=== PATIENT | male | born 1945 | race Caucasian/White ===

== ENCOUNTER 2018-10-04 02:23 | Inpatient (IN) | payer MEDICARE ==
[~2018-10-04] VITALS: Ht 167.6 cm; Wt 81.6 kg
[2018-10-04] MEDS ORDERED: OMNIPAQUE 350 MG/ML, 100ML BOTTLE ONE (02:49)
[2018-10-04 03:05] LABS: BASOPHILS # (AUTO) 0.02 x10^3/uL (0-0.1); BASOPHILS % (AUTO) 0 % (0-1); EOSINOPHILS # (AUTO) 0.12 x10^3/uL (0-0.4); EOSINOPHILS % (AUTO) 1 % (1-7); LYMPHOCYTES # (AUTO) 1.03 x10^3/uL (1-3.4); LYMPHOCYTES % (AUTO) 9 % (22-44); MD NO; MEAN CORPUSCULAR HGB CONC 33.6 g/dL (33.2-36.2); MEAN CORPUSCULAR VOLUME 92.3 fL (81-97); MEAN PLATELET VOLUME 9.4 fL (7.4-10.4); MONOCYTES # (AUTO) 0.62 x10^3/uL (0.2-0.8); MONOCYTES % (AUTO) 6 % (2-9); NEUTROPHILS # (AUTO) 9.29 x10^3/uL (1.8-6.8); NEUTROPHILS % (AUTO) 84 % (42-75); PLATELET COUNT 205 x10^3/uL (130-400); RED BLOOD COUNT 4.05 x10^6/uL (4.38-5.82); RED CELL DISTRIBUTION WIDTH 13.6 % (9.4-14.8)
[2018-10-04 03:11] LABS: INTERNATIONAL NORMALIZED RATIO 0.98 (0.93-1.1); PROTHROMBIN TIME 10.2 Seconds (9.6-11.5)
[2018-10-04 03:13] LABS: ALBUMIN 3.5 g/dL (3.4-5.0); ANION GAP 7 mmol/L (5-15); CALCIUM 8.5 mg/dL (8.5-10.1); CHLORIDE 109 mmol/L (98-107); CREATININE 2.46 mg/dL (0.7-1.3)
[2018-10-04 03:17] LABS: TROPONIN I 0.027 ng/mL (0.000-0.045)
[2018-10-04] MEDS ORDERED: SODIUM CHLORIDE 0.9% 1,000 ML IV SCH (04:28)
[2018-10-04] MEDS ORDERED: ONDANSETRON 2MG/ML, 2ML IVPush PRN (04:30)
[2018-10-04] MEDS ORDERED: ACETAMINOPHEN 325 MG TABLET PO PRN (04:30)
[2018-10-04] MEDS ORDERED: ONDANSETRON 4 MG TABLET PO PRN (04:30)
[2018-10-04 05:44] VITALS: BP 183/83
[2018-10-04] MEDS ORDERED: PHARMACY MAY ADJ FOR RENAL FX MC PRN (07:00)
[2018-10-04 07:45] VITALS: BP 198/95
[2018-10-04 08:00] LABS: HEMOGLOBIN A1C 7.3 % (4.2-6.3)
[2018-10-04] MEDS: HEPARIN 5,000 UNITS/ML, 1ML SQ SCH ×2 (08:59→22:22)
[2018-10-04] MEDS ORDERED: CARVEDILOL 6.25 MG TABLET PO SCH (09:00)
[2018-10-04] MEDS: SODIUM CHLORIDE 0.45% 1,000 ML IV SCH ×2 (09:00→22:22)
[2018-10-04] MEDS: AMLODIPINE 5 MG TABLET PO SCH (09:00)
[2018-10-04] MEDS: ASPIRIN 81 MG TABLET CHEW PO/NG SCH (09:00)
[2018-10-04 13:18] LABS: MICROSCOPIC AUTO
[2018-10-04 13:21] LABS: CULTURE INDICATED? NO
[2018-10-04 13:29] LABS: CREATININE,URINE RANDOM 79.7 mg/dL
[2018-10-04 14:00] VITALS: BP 168/78
[2018-10-04 20:03] VITALS: BP 151/74
[2018-10-04] MEDS ORDERED: CBD OIL PO SCH (21:00)
[2018-10-05 00:38] VITALS: BP 180/82
[2018-10-05 03:45] VITALS: BP 183/81
[2018-10-05 05:25] LABS: ALANINE AMINOTRANSFERASE 16 U/L (12-78); ALBUMIN 3.1 g/dL (3.4-5.0); ANION GAP 9 mmol/L (5-15); CALCIUM 8.1 mg/dL (8.5-10.1); CHLORIDE 111 mmol/L (98-107)
[2018-10-05 05:29] LABS: ALKALINE PHOSPHATASE 72 U/L (45-117); BILIRUBIN,TOTAL 0.5 mg/dL (0.2-1.0); CHOL/HDL RATIO 4.3; CHOLESTEROL, TOTAL 137 mg/dL (140-239); CREATININE 2.38 mg/dL (0.7-1.3); HDL CHOL % 23 % (26-37); HDL CHOLESTEROL (DIRECT) 32 mg/dL (40-60); LDL CHOLESTEROL,CALCULATED 75 mg/dL (54-169); LDL/HDL RATIO 2.3 (0.5-3.0); TOTAL PROTEIN 6.9 g/dL (6.4-8.2); TRIGLYCERIDES 150 mg/dL (50-200); VLDL CHOLESTEROL 30 mg/dL (0-25)
[2018-10-05 05:32] LABS: BASOPHILS # (AUTO) 0.05 x10^3/uL (0-0.1); BASOPHILS % (AUTO) 1 % (0-1); EOSINOPHILS # (AUTO) 0.12 x10^3/uL (0-0.4); EOSINOPHILS % (AUTO) 1 % (1-7); LYMPHOCYTES # (AUTO) 1.09 x10^3/uL (1-3.4); LYMPHOCYTES % (AUTO) 13 % (22-44); MD NO; MEAN CORPUSCULAR HEMOGLOBIN 30.7 pg (27.5-34.5); MEAN CORPUSCULAR HGB CONC 33.6 g/dL (33.2-36.2); MEAN CORPUSCULAR VOLUME 91.3 fL (81-97); MEAN PLATELET VOLUME 9.8 fL (7.4-10.4); MONOCYTES # (AUTO) 0.63 x10^3/uL (0.2-0.8); MONOCYTES % (AUTO) 7 % (2-9); NEUTROPHILS # (AUTO) 6.78 x10^3/uL (1.8-6.8); NEUTROPHILS % (AUTO) 78 % (42-75); PLATELET COUNT 182 x10^3/uL (130-400); RED CELL DISTRIBUTION WIDTH 13.6 % (9.4-14.8)
[2018-10-05] MEDS ORDERED: cloniDINE 0.1MG PATCH TD SCH (07:30)
[2018-10-05 08:00] VITALS: BP 184/94
[2018-10-05] MEDS ORDERED: [UNRECOGNIZED DRUG - OTHER] PO SCH (08:00)
[2018-10-05] MEDS: HEPARIN 5,000 UNITS/ML, 1ML SQ SCH (09:16)
[2018-10-05] MEDS: AMLODIPINE 5 MG TABLET PO SCH (09:17)
[2018-10-05] MEDS: ASPIRIN 81 MG TABLET CHEW PO/NG SCH (09:17)
[2018-10-05] MEDS: TAMSULOSIN 0.4 MG CAP.ER.24H PO SCH (09:17)
[2018-10-05] MEDS: SODIUM CHLORIDE 0.45% 1,000 ML IV SCH (09:18)
[2018-10-05 13:05] VITALS: BP 159/77
[2018-10-05] MEDS: CARVEDILOL 25 MG TABLET PO SCH ×2 (13:27→16:51)
[2018-10-05] MEDS ORDERED: ONDANSETRON ODT 4 MG ONE (15:00)
[2018-10-05] MEDS: ONDANSETRON ODT 4 MG PO PRN ×2 (15:02→20:50)
[2018-10-05 18:47] VITALS: BP 149/75
[2018-10-05] MEDS ORDERED: HEPARIN wt. based STROKE protocol MC PRN (19:00)
[2018-10-05 19:05] LABS: INTERNATIONAL NORMALIZED RATIO 0.99 (0.93-1.1); PROTHROMBIN TIME 10.3 Seconds (9.6-11.5)
[2018-10-05] MEDS ORDERED: WARFARIN 5 MG TABLET PO-COUM ONE (19:30)
[2018-10-05] MEDS: HEPARIN 25,000 UNITS/500ML PMX 500 ML IV PRN (20:17)
[2018-10-06] MEDS: SODIUM CHLORIDE 0.45% 1,000 ML IV SCH ×2 (02:09→12:22)
[2018-10-06 02:27] LABS: BASOPHILS # (AUTO) 0.04 x10^3/uL (0-0.1); BASOPHILS % (AUTO) 0 % (0-1); EOSINOPHILS # (AUTO) 0.05 x10^3/uL (0-0.4); EOSINOPHILS % (AUTO) 0 % (1-7); LYMPHOCYTES % (AUTO) 8 % (22-44); MD NO; MEAN CORPUSCULAR HEMOGLOBIN 31.2 pg (27.5-34.5); MEAN CORPUSCULAR HGB CONC 33.9 g/dL (33.2-36.2); MEAN CORPUSCULAR VOLUME 92.1 fL (81-97); MEAN PLATELET VOLUME 9.3 fL (7.4-10.4); MONOCYTES % (AUTO) 6 % (2-9); NEUTROPHILS # (AUTO) 9.21 x10^3/uL (1.8-6.8); NEUTROPHILS % (AUTO) 85 % (42-75); PLATELET COUNT 193 x10^3/uL (130-400); RED BLOOD COUNT 3.93 x10^6/uL (4.38-5.82); RED CELL DISTRIBUTION WIDTH 13.1 % (9.4-14.8)
[2018-10-06 02:38] LABS: ALBUMIN 3.4 g/dL (3.4-5.0); ANION GAP 13 mmol/L (5-15); CALCIUM 8.2 mg/dL (8.5-10.1); CHLORIDE 109 mmol/L (98-107); CREATININE 2.86 mg/dL (0.7-1.3)
[2018-10-06 02:40] LABS: INTERNATIONAL NORMALIZED RATIO 0.99 (0.93-1.1); PROTHROMBIN TIME 10.3 Seconds (9.6-11.5)
[2018-10-06 03:22] VITALS: BP 165/89
[2018-10-06] MEDS: ONDANSETRON ODT 4 MG PO PRN (05:02)
[2018-10-06] MEDS: CARVEDILOL 25 MG TABLET PO SCH ×2 (06:00→17:48)
[2018-10-06 07:02] VITALS: BP 174/78
[2018-10-06] MEDS: AMLODIPINE 5 MG TABLET PO SCH (09:00)
[2018-10-06] MEDS: TAMSULOSIN 0.4 MG CAP.ER.24H PO SCH (09:00)
[2018-10-06 12:44] VITALS: BP 183/71
[2018-10-06] MEDS: SODIUM BICARBONATE 650 MG TABLET PO SCH (14:39)
[2018-10-06] MEDS: LACTATED RINGERS 1,000 ML IV SCH (14:40)
[2018-10-06] MEDS ORDERED: WARFARIN 5 MG TABLET PO-COUM ONE (18:00)
[2018-10-06 19:51] VITALS: BP 152/77
[2018-10-07] MEDS: HEPARIN 25,000 UNITS/500ML PMX 500 ML IV PRN ×2 (00:27→22:43)
[2018-10-07 00:42] VITALS: BP 135/50
[2018-10-07] MEDS: LACTATED RINGERS 1,000 ML IV SCH ×3 (00:42→22:37)
[2018-10-07] MEDS: SODIUM BICARBONATE 650 MG TABLET PO SCH ×2 (01:40→08:10)
[2018-10-07 04:45] LABS: BASOPHILS # (AUTO) 0.01 x10^3/uL (0-0.1); BASOPHILS % (AUTO) 0 % (0-1); EOSINOPHILS % (AUTO) 2 % (1-7); LYMPHOCYTES # (AUTO) 0.88 x10^3/uL (1-3.4); LYMPHOCYTES % (AUTO) 10 % (22-44); MD NO; MEAN CORPUSCULAR HEMOGLOBIN 31.1 pg (27.5-34.5); MEAN CORPUSCULAR HGB CONC 33.9 g/dL (33.2-36.2); MEAN CORPUSCULAR VOLUME 91.9 fL (81-97); MEAN PLATELET VOLUME 9.4 fL (7.4-10.4); MONOCYTES # (AUTO) 0.66 x10^3/uL (0.2-0.8); MONOCYTES % (AUTO) 7 % (2-9); NEUTROPHILS % (AUTO) 81 % (42-75); PLATELET COUNT 166 x10^3/uL (130-400); RED BLOOD COUNT 3.76 x10^6/uL (4.38-5.82); RED CELL DISTRIBUTION WIDTH 13.1 % (9.4-14.8)
[2018-10-07 04:49] LABS: INTERNATIONAL NORMALIZED RATIO 1.01 (0.93-1.1); PROTHROMBIN TIME 10.5 Seconds (9.6-11.5)
[2018-10-07 04:51] LABS: ALBUMIN 2.9 g/dL (3.4-5.0); ANION GAP 7 mmol/L (5-15); CALCIUM 8.4 mg/dL (8.5-10.1); CHLORIDE 109 mmol/L (98-107); CREATININE 2.74 mg/dL (0.7-1.3)
[2018-10-07] MEDS: CARVEDILOL 25 MG TABLET PO SCH (06:00)
[2018-10-07] MEDS: COREG MC SCH ×2 (06:30→07:30)
[2018-10-07 07:52] VITALS: BP 184/73
[2018-10-07] MEDS: AMLODIPINE 5 MG TABLET PO SCH (08:10)
[2018-10-07] MEDS: TAMSULOSIN 0.4 MG CAP.ER.24H PO SCH (08:10)
[2018-10-07] MEDS: METOPROLOL SUCCINATE 50 MG TAB.ER.24H PO SCH (08:11)
[2018-10-07] MEDS ORDERED: SODIUM CHLORIDE 0.45%, 1,000ML IVBOLUS SCH (09:00)
[2018-10-07] MEDS: SODIUM CHLORIDE 0.45% 1,000 ML IV SCH ×2 (09:00→19:00)
[2018-10-07 11:04] VITALS: BP 92/59
[2018-10-07 14:00] VITALS: BP 149/78
[2018-10-07] MEDS ORDERED: WARFARIN 7.5 MG TABLET PO-COUM ONE (18:00)
[2018-10-07 18:34] VITALS: BP 137/73
[2018-10-07 23:10] VITALS: BP 162/74
[2018-10-08 00:38] VITALS: BP 168/69
[2018-10-08 02:40] LABS: CREATININE,URINE RANDOM 40.5 mg/dL
[2018-10-08 05:41] LABS: BASOPHILS # (AUTO) 0.04 x10^3/uL (0-0.1); BASOPHILS % (AUTO) 0 % (0-1); EOSINOPHILS # (AUTO) 0.19 x10^3/uL (0-0.4); EOSINOPHILS % (AUTO) 2 % (1-7); LYMPHOCYTES # (AUTO) 0.88 x10^3/uL (1-3.4); LYMPHOCYTES % (AUTO) 10 % (22-44); MD NO; MEAN CORPUSCULAR HEMOGLOBIN 31.1 pg (27.5-34.5); MEAN CORPUSCULAR HGB CONC 33.7 g/dL (33.2-36.2); MEAN CORPUSCULAR VOLUME 92.3 fL (81-97); MEAN PLATELET VOLUME 9.6 fL (7.4-10.4); MONOCYTES # (AUTO) 0.71 x10^3/uL (0.2-0.8); MONOCYTES % (AUTO) 8 % (2-9); NEUTROPHILS # (AUTO) 7.33 x10^3/uL (1.8-6.8); NEUTROPHILS % (AUTO) 80 % (42-75); PLATELET COUNT 171 x10^3/uL (130-400); RED BLOOD COUNT 3.73 x10^6/uL (4.38-5.82); RED CELL DISTRIBUTION WIDTH 13.4 % (9.4-14.8)
[2018-10-08 05:49] LABS: INTERNATIONAL NORMALIZED RATIO 1.1 (0.93-1.1); PROTHROMBIN TIME 11.4 Seconds (9.6-11.5)
[2018-10-08 05:50] LABS: ALBUMIN 2.7 g/dL (3.4-5.0); ANION GAP 9 mmol/L (5-15); CALCIUM 7.9 mg/dL (8.5-10.1); CHLORIDE 109 mmol/L (98-107); CREATININE 2.52 mg/dL (0.7-1.3)
[2018-10-08] MEDS: LACTATED RINGERS 1,000 ML IV SCH ×2 (06:08→16:24)
[2018-10-08] MEDS: METOPROLOL SUCCINATE 50 MG TAB.ER.24H PO SCH (06:08)
[2018-10-08 07:01] VITALS: BP 162/65
[2018-10-08] MEDS: TAMSULOSIN 0.4 MG CAP.ER.24H PO SCH (09:14)
[2018-10-08] MEDS: AMLODIPINE 5 MG TABLET PO SCH ×2 (09:14→20:45)
[2018-10-08 13:36] VITALS: BP 156/69
[2018-10-08] MEDS ORDERED: WARFARIN 10 MG TABLET PO-COUM ONE (18:00)
[2018-10-08 19:22] VITALS: BP 140/70
[2018-10-08] MEDS: HEPARIN 25,000 UNITS/500ML PMX 500 ML IV PRN (20:16)
[2018-10-09] MEDS: LACTATED RINGERS 1,000 ML IV SCH ×3 (00:05→18:14)
[2018-10-09 01:59] VITALS: BP 136/71
[2018-10-09] MEDS: METOPROLOL SUCCINATE 50 MG TAB.ER.24H PO SCH (05:57)
[2018-10-09 06:22] LABS: INTERNATIONAL NORMALIZED RATIO 1.43 (0.93-1.1); PROTHROMBIN TIME 14.8 Seconds (9.6-11.5)
[2018-10-09 06:56] LABS: BASOPHILS # (AUTO) 0.01 x10^3/uL (0-0.1); BASOPHILS % (AUTO) 0 % (0-1); EOSINOPHILS # (AUTO) 0.17 x10^3/uL (0-0.4); EOSINOPHILS % (AUTO) 2 % (1-7); LYMPHOCYTES % (AUTO) 9 % (22-44); MD NO; MEAN CORPUSCULAR HEMOGLOBIN 31.3 pg (27.5-34.5); MEAN CORPUSCULAR HGB CONC 34.2 g/dL (33.2-36.2); MEAN CORPUSCULAR VOLUME 91.6 fL (81-97); MEAN PLATELET VOLUME 9.5 fL (7.4-10.4); MONOCYTES # (AUTO) 0.66 x10^3/uL (0.2-0.8); MONOCYTES % (AUTO) 7 % (2-9); NEUTROPHILS % (AUTO) 82 % (42-75); PLATELET COUNT 166 x10^3/uL (130-400); RED BLOOD COUNT 3.75 x10^6/uL (4.38-5.82); RED CELL DISTRIBUTION WIDTH 13.9 % (9.4-14.8)
[2018-10-09 07:10] LABS: ALBUMIN 2.8 g/dL (3.4-5.0); ANION GAP 9 mmol/L (5-15); CHLORIDE 108 mmol/L (98-107)
[2018-10-09 07:12] LABS: CREATININE 2.61 mg/dL (0.7-1.3)
[2018-10-09 07:48] VITALS: BP 164/78
[2018-10-09] MEDS: AMLODIPINE 5 MG TABLET PO SCH ×2 (08:20→20:55)
[2018-10-09] MEDS: TAMSULOSIN 0.4 MG CAP.ER.24H PO SCH (08:21)
[2018-10-09] MEDS ORDERED: HEPARIN 25,000 UNITS/500ML PMX 500 ML IV PRN ×2 (12:00→12:30)
[2018-10-09 12:16] VITALS: BP 142/74
[2018-10-09] MEDS ORDERED: WARFARIN 10 MG TABLET PO-COUM SCH (18:00)
[2018-10-09] MEDS: LIDODERM 5% PATCH TD SCH (18:14)
[2018-10-09 19:26] VITALS: BP 142/78
[2018-10-10 01:58] VITALS: BP 150/76
[2018-10-10] MEDS: LACTATED RINGERS 1,000 ML IV SCH (03:32)
[2018-10-10 05:30] LABS: BASOPHILS # (AUTO) 0.03 x10^3/uL (0-0.1); BASOPHILS % (AUTO) 0 % (0-1); EOSINOPHILS # (AUTO) 0.11 x10^3/uL (0-0.4); EOSINOPHILS % (AUTO) 1 % (1-7); INTERNATIONAL NORMALIZED RATIO 2.47 (0.93-1.1); LYMPHOCYTES # (AUTO) 0.82 x10^3/uL (1-3.4); LYMPHOCYTES % (AUTO) 10 % (22-44); MD NO; MEAN CORPUSCULAR HEMOGLOBIN 30.4 pg (27.5-34.5); MEAN CORPUSCULAR HGB CONC 33.2 g/dL (33.2-36.2); MEAN CORPUSCULAR VOLUME 91.5 fL (81-97); MEAN PLATELET VOLUME 10.3 fL (7.4-10.4); MONOCYTES # (AUTO) 0.75 x10^3/uL (0.2-0.8); MONOCYTES % (AUTO) 9 % (2-9); NEUTROPHILS % (AUTO) 80 % (42-75); PLATELET COUNT 174 x10^3/uL (130-400); PROTHROMBIN TIME 25.2 Seconds (9.6-11.5); RED CELL DISTRIBUTION WIDTH 13.6 % (9.4-14.8)
[2018-10-10 05:35] LABS: ALBUMIN 2.6 g/dL (3.4-5.0); ANION GAP 9 mmol/L (5-15); CALCIUM 8.2 mg/dL (8.5-10.1); CHLORIDE 109 mmol/L (98-107)
[2018-10-10 05:38] LABS: ALANINE AMINOTRANSFERASE 26 U/L (12-78); ALKALINE PHOSPHATASE 66 U/L (45-117); BILIRUBIN,TOTAL 0.2 mg/dL (0.2-1.0); CREATININE 2.26 mg/dL (0.7-1.3); TOTAL PROTEIN 6.1 g/dL (6.4-8.2)
[2018-10-10] MEDS: METOPROLOL SUCCINATE 50 MG TAB.ER.24H PO SCH (05:55)
[2018-10-10 06:45] VITALS: BP 163/83
[2018-10-10] MEDS: AMLODIPINE 5 MG TABLET PO SCH ×2 (08:41→22:12)
[2018-10-10] MEDS: TAMSULOSIN 0.4 MG CAP.ER.24H PO SCH (08:41)
[2018-10-10] MEDS ORDERED: FUROSEMIDE 20 MG/2 ML IV ONE (09:00)
[2018-10-10 12:57] VITALS: BP 156/73
[2018-10-10] MEDS ORDERED: cloniDINE 0.1MG PATCH TD SCH (13:30)
[2018-10-10] MEDS: LIDODERM 5% PATCH TD SCH (17:59)
[2018-10-10] MEDS: WARFARIN 5 MG TABLET PO-COUM ONE ×2 (17:59→22:12)
[2018-10-10] MEDS: POLYETHYLENE GLYCOL 17 GM PACKET PO PRN (18:08)
[2018-10-10] MEDS ORDERED: BISACODYL 10 MG SUPP PR PRN (18:30)
[2018-10-10 20:50] VITALS: BP 155/80
[2018-10-11 02:39] VITALS: BP 151/74
[2018-10-11 05:47] LABS: BASOPHILS # (AUTO) 0.02 x10^3/uL (0-0.1); BASOPHILS % (AUTO) 0 % (0-1); EOSINOPHILS # (AUTO) 0.11 x10^3/uL (0-0.4); EOSINOPHILS % (AUTO) 1 % (1-7); LYMPHOCYTES # (AUTO) 0.67 x10^3/uL (1-3.4); LYMPHOCYTES % (AUTO) 7 % (22-44); MD NO; MEAN CORPUSCULAR HEMOGLOBIN 31.1 pg (27.5-34.5); MEAN CORPUSCULAR HGB CONC 33.8 g/dL (33.2-36.2); MEAN PLATELET VOLUME 10.1 fL (7.4-10.4); MONOCYTES # (AUTO) 0.68 x10^3/uL (0.2-0.8); MONOCYTES % (AUTO) 7 % (2-9); NEUTROPHILS # (AUTO) 7.92 x10^3/uL (1.8-6.8); NEUTROPHILS % (AUTO) 84 % (42-75); PLATELET COUNT 179 x10^3/uL (130-400); RED BLOOD COUNT 3.62 x10^6/uL (4.38-5.82); RED CELL DISTRIBUTION WIDTH 13.3 % (9.4-14.8)
[2018-10-11 05:52] LABS: INTERNATIONAL NORMALIZED RATIO 2.52 (0.93-1.1); PROTHROMBIN TIME 25.7 Seconds (9.6-11.5)
[2018-10-11 05:56] LABS: ALANINE AMINOTRANSFERASE 38 U/L (12-78); ALBUMIN 2.8 g/dL (3.4-5.0); ANION GAP 10 mmol/L (5-15); CALCIUM 8.2 mg/dL (8.5-10.1); CHLORIDE 107 mmol/L (98-107)
[2018-10-11 05:58] LABS: ALKALINE PHOSPHATASE 65 U/L (45-117); BILIRUBIN,TOTAL 0.3 mg/dL (0.2-1.0); CREATININE 2.58 mg/dL (0.7-1.3); TOTAL PROTEIN 6.3 g/dL (6.4-8.2)
[2018-10-11 06:40] VITALS: BP 153/74
[2018-10-11] MEDS ORDERED: MAGNESIUM SULFATE PMX 2GM/50ML 50 ML IV ONE (08:00)
[2018-10-11] MEDS: METOPROLOL SUCCINATE 50 MG TAB.ER.24H PO SCH (08:17)
[2018-10-11] MEDS: FLUTICASONE NASAL SPRAY 16GM NAS SCH ×2 (09:30→19:58)
[2018-10-11] MEDS ORDERED: MORPHINE SULFATE 4 MG/ML, 1ML IVPush ONE (10:30)
[2018-10-11] MEDS: TAMSULOSIN 0.4 MG CAP.ER.24H PO SCH (11:27)
[2018-10-11] MEDS: AMLODIPINE 5 MG TABLET PO SCH ×2 (11:27→19:58)
[2018-10-11 13:12] VITALS: BP 154/70
[2018-10-11] MEDS: LIDODERM 5% PATCH TD SCH (17:53)
[2018-10-11] MEDS: POLYETHYLENE GLYCOL 17 GM PACKET PO PRN (17:53)
[2018-10-11] MEDS ORDERED: WARFARIN 5 MG TABLET PO-COUM ONE (18:00)
[2018-10-11 19:55] VITALS: BP 152/84
[2018-10-12 01:38] VITALS: BP 141/81
[2018-10-12 05:10] VITALS: BP 156/70
[2018-10-12] MEDS: METOPROLOL SUCCINATE 50 MG TAB.ER.24H PO SCH (05:13)
[2018-10-12] MEDS: POLYETHYLENE GLYCOL 17 GM PACKET PO PRN (05:14)
[2018-10-12 06:00] LABS: INTERNATIONAL NORMALIZED RATIO 2.62 (0.93-1.1); PROTHROMBIN TIME 26.7 Seconds (9.6-11.5)
[2018-10-12 07:00] VITALS: BP 144/70
[2018-10-12] MEDS: TAMSULOSIN 0.4 MG CAP.ER.24H PO SCH (09:14)
[2018-10-12] MEDS: AMLODIPINE 5 MG TABLET PO SCH ×2 (09:14→20:33)
[2018-10-12] MEDS: FLUTICASONE NASAL SPRAY 16GM NAS SCH ×2 (09:14→20:33)
[2018-10-12 12:04] VITALS: BP 140/67
[2018-10-12 12:41] LABS: BASOPHILS # (AUTO) 0.08 x10^3/uL (0-0.1); BASOPHILS % (AUTO) 1 % (0-1); EOSINOPHILS # (AUTO) 0.16 x10^3/uL (0-0.4); EOSINOPHILS % (AUTO) 2 % (1-7); LYMPHOCYTES # (AUTO) 0.84 x10^3/uL (1-3.4); LYMPHOCYTES % (AUTO) 8 % (22-44); MD NO; MEAN CORPUSCULAR HEMOGLOBIN 30.3 pg (27.5-34.5); MEAN CORPUSCULAR HGB CONC 32.8 g/dL (33.2-36.2); MEAN CORPUSCULAR VOLUME 92.5 fL (81-97); MEAN PLATELET VOLUME 9.7 fL (7.4-10.4); MONOCYTES # (AUTO) 0.68 x10^3/uL (0.2-0.8); MONOCYTES % (AUTO) 7 % (2-9); NEUTROPHILS # (AUTO) 8.44 x10^3/uL (1.8-6.8); NEUTROPHILS % (AUTO) 83 % (42-75); PLATELET COUNT 179 x10^3/uL (130-400); RED BLOOD COUNT 3.77 x10^6/uL (4.38-5.82); RED CELL DISTRIBUTION WIDTH 13.6 % (9.4-14.8)
[2018-10-12 12:55] LABS: ALANINE AMINOTRANSFERASE 40 U/L (12-78); ALBUMIN 2.9 g/dL (3.4-5.0); ANION GAP 3 mmol/L (5-15); CHLORIDE 109 mmol/L (98-107); CREATININE 2.46 mg/dL (0.7-1.3)
[2018-10-12 12:58] LABS: ALKALINE PHOSPHATASE 67 U/L (45-117); BILIRUBIN,TOTAL 0.3 mg/dL (0.2-1.0); TOTAL PROTEIN 6.6 g/dL (6.4-8.2)
[2018-10-12] MEDS: FINASTERIDE 5 MG TABLET PO SCH (12:59)
[2018-10-12] MEDS ORDERED: WARFARIN 5 MG TABLET PO-COUM ONE (18:00)
[2018-10-12] MEDS: LIDODERM 5% PATCH TD SCH (18:23)
[2018-10-12 20:01] VITALS: BP 135/68
[2018-10-13 02:22] VITALS: BP 144/71
[2018-10-13 05:17] VITALS: BP 157/84
[2018-10-13] MEDS: METOPROLOL SUCCINATE 50 MG TAB.ER.24H PO SCH (05:19)
[2018-10-13 05:44] LABS: INTERNATIONAL NORMALIZED RATIO 2.84 (0.93-1.1); PROTHROMBIN TIME 28.9 Seconds (9.6-11.5)
[2018-10-13 07:45] VITALS: BP 149/82
[2018-10-13] MEDS: TAMSULOSIN 0.4 MG CAP.ER.24H PO SCH (08:11)
[2018-10-13] MEDS: FINASTERIDE 5 MG TABLET PO SCH (08:11)
[2018-10-13] MEDS: AMLODIPINE 5 MG TABLET PO SCH (08:12)
[2018-10-13] MEDS: FLUTICASONE NASAL SPRAY 16GM NAS SCH (08:14)
[2018-10-13] MEDS ORDERED: AMLO5TAB7 PO (09:29)
[2018-10-13] MEDS ORDERED: METO-93 PO (09:29)
[2018-10-13] MEDS ORDERED: TAMS-11 PO (09:29)
[2018-10-13] MEDS ORDERED: FINA5TAB4 PO (09:29)
[2018-10-13] MEDS ORDERED: HYDR-3342 PO (09:29)
[2018-10-13 13:08] VITALS: BP 138/73
[2018-10-13] MEDS ORDERED: WARF3TAB PO (14:21)
[2018-10-13] MEDS ORDERED: WARFARIN 5 MG TABLET PO-COUM ONE (18:00)
== END 2018-10-13 18:08 | DRG 65 ==
LOC: ED 03:57 → SUATTDRO 04:16 → 4WST 04:28 → EDIP 04:28 → UNDOADMIN 04:28 → EDIP 04:44 → 4WST 04:44
PROVIDERS: ADMIT Hospitalist; ATTEND Hospitalist
DX: I63.9 Cerebral infarction, unspecified (principal); I42.9 Cardiomyopathy, unspecified; N17.9 Acute kidney failure, unspecified; I82.C19 Acute embolism and thrombosis of unspecified internal jugular vein; R47.01 Aphasia; D64.9 Anemia, unspecified; E11.9 Type 2 diabetes mellitus without complications; E78.5 Hyperlipidemia, unspecified; G89.29 Other chronic pain; H54.8 Legal blindness, as defined in USA; I10 Essential (primary) hypertension; I25.10 Atherosclerotic heart disease of native coronary artery without angina pectoris; I48.0 Paroxysmal atrial fibrillation; W06.XXXA Fall from bed, initial encounter; I65.23 Occlusion and stenosis of bilateral carotid arteries; R29.810 Facial weakness; Y93.89 Activity, other specified; Y92.89 Other specified places as the place of occurrence of the external cause; Y99.8 Other external cause status; Z79.01 Long term (current) use of anticoagulants; Z79.899 Other long term (current) drug therapy; Z85.51 Personal history of malignant neoplasm of bladder; Z86.718 Personal history of other venous thrombosis and embolism; Z88.8 Allergy status to other drugs, medicaments and biological substances; Z95.0 Presence of cardiac pacemaker; Z95.1 Presence of aortocoronary bypass graft
CPT/HCPCS: 36415; 70450; 70496; 70498; 71045; 72190; 74230; 76770; 80047; 80048; 80053; 80061; 81001; 82040; 82570; 82962; 83036; 83735; 84100; 84156; 84300; 84484; 85025; 85520; 85610; 85730; 87040; 87205; 93005; 93306; 99291; G0378; J1644; J2405; Q0162; Q9967; 92523-GN; J1940; J3475; J7030; J7120